=== PATIENT | male | born 1940 | race Caucasian/White ===

== ENCOUNTER 2017-08-24 11:24 | Day surgery (SDC) | payer OTHER, MEDICARE ==
[2017-08-18 15:41] LABS: BASOPHILS % (AUTO) 0.4 % (0-1); EOSINOPHILS # (AUTO) 0.3 X10'3 (0-0.9); EOSINOPHILS % (AUTO) 4.6 % (0-6); HEMOGLOBIN 14.3 g/dl (14.0-17.9); LYMPHOCYTES # (AUTO) 1.2 X10'3 (1.1-4.8); LYMPHOCYTES % (AUTO) 17.9 % (21-51); MEAN CORPUSCULAR HEMOGLOBIN 32.1 PG (27.0-31.0); MEAN CORPUSCULAR HGB CONC 33.9 % (33.0-36.5); MEAN CORPUSCULAR VOLUME 94.6 FL (78-98); MONOCYTES # (AUTO) 0.5 X10'3 (0-0.9); MONOCYTES % (AUTO) 7.5 % (2-12); NEUTROPHILS # (AUTO) 4.8 X10'3 (1.8-7.7); NEUTROPHILS % (AUTO) 69.6 % (42-75); PLATELET COUNT 172 X10'3 (140-440); RED BLOOD COUNT 4.44 X10'6 (4.70-6.10); RED CELL DISTRIBUTION WIDTH 13.3 % (11.5-14.5); WHITE BLOOD COUNT 6.9 X10'3 (4.5-11.0)
[2017-08-18 15:51] LABS: ALBUMIN 3.6 G/DL (3.4-5.0); ANION GAP 8 (8-16); BLOOD UREA NITROGEN 15 MG/DL (7-18); BUN/CREATININE RATIO 13.9 (5.4-32.0); CALCIUM 8.5 MG/DL (8.5-10.1); CHLORIDE 114 MMOL/L (99-107); CREATININE 1.08 MG/DL (0.60-1.10); GLUCOSE 103 MG/DL (70-104); INR 2.2 INR; PARTIAL THROMBOPLASTIN TIME 36 SECONDS (22-32); POTASSIUM 4.2 MMOL/L (3.5-5.1); PROTHROMBIN TIME 22.3 SECONDS (9.0-12.0); SODIUM 147 MMOL/L (135-145); TOTAL CARBON DIOXIDE 25.1 MMOL/L (24-32); eGFR 67 ML/MIN
[2017-08-24] VITALS (11 sets, daily range): BP systolic 102–152; BP diastolic 69–94
[~2017-08-24] VITALS: Ht 172.7 cm; Wt 114.4 kg
[2017-08-24] MEDS ORDERED: LORazepam 0.5 MG tablet PO PRN (11:50)
[2017-08-24] MEDS ORDERED: diphenhydrAMINE 25mg capsule PO PRN (11:50)
[2017-08-24] MEDS ORDERED: normal saline 1000ml 1,000 ML IV SCH ×2 (11:50→16:40)
[2017-08-24] MEDS ORDERED: ALLO100T PO (12:23)
[2017-08-24] MEDS ORDERED: DULO-31 PO (12:23)
[2017-08-24] MEDS ORDERED: LOSA25TA96 PO (12:23)
[2017-08-24] MEDS ORDERED: MULT-1085 PO (12:23)
[2017-08-24] MEDS ORDERED: ROSU40TA PO (12:23)
[2017-08-24] MEDS ORDERED: TOPI50TA24 PO (12:23)
[2017-08-24] MEDS ORDERED: FINA5TAB11 PO (12:23)
[2017-08-24] MEDS ORDERED: COU5T PO (12:23)
[2017-08-24] MEDS ORDERED: OMEG1CAP13 PO (12:23)
[2017-08-24] MEDS ORDERED: FLO0.4C PO (12:23)
[2017-08-24] MEDS ORDERED: METO50TA17 PO (12:23)
[2017-08-24] MEDS ORDERED: METH500T6 PO (12:23)
[2017-08-24 13:22] LABS: INR 0.9 INR; PROTHROMBIN TIME 9.8 SECONDS (9.0-12.0)
[2017-08-24] MEDS ORDERED: iohexol 350MG/ML 100ml bottle IV ONE (14:21)
[2017-08-24] MEDS ORDERED: LIDOcaine 1% w/EPI 1:100,000 30ml vial (MDV) ONE (14:21)
[2017-08-24] MEDS ORDERED: midazolam 2 mg/2 ml injection ONE (14:37)
[2017-08-24] MEDS ORDERED: fentaNYL/PF 50MCG/1 ML 2ML syringe ONE (14:37)
[2017-08-24] MEDS ORDERED: HYDROcodone/acetaminophen 5mg/325mg tablet PO PRN (16:40)
[2017-08-24] MEDS ORDERED: ondansetron/PF 4mg/2ml inj IV PRN (16:40)
[2017-08-24] MEDS ORDERED: HYDROcodone/acetaminophen 10/325mg tab PO PRN (16:45)
[2017-08-24] MEDS ORDERED: proCHLORperazine 10 MG/2 ml inj IV PRN (16:45)
[2017-08-24] MEDS ORDERED: nitroGLYCERIN 0.4mg SUBLingual tab SL PRN (16:45)
[2017-08-24] MEDS ORDERED: OXAZEpam 15mg capsule PO PRN (16:45)
== END 2017-08-24 20:10 | disposition home or self-care (01) ==
LOC: SSTAY O 11:24
PROVIDERS: ATTEND Internal Medicine Interventional Cardiology
DX: I25.118 Atherosclerotic heart disease of native coronary artery with other forms of angina pectoris (principal); E66.9 Obesity, unspecified; E78.5 Hyperlipidemia, unspecified; G47.33 Obstructive sleep apnea (adult) (pediatric); F32.9 Major depressive disorder, single episode, unspecified; F41.9 Anxiety disorder, unspecified; N40.0 Benign prostatic hyperplasia without lower urinary tract symptoms; I11.0 Hypertensive heart disease with heart failure; I50.9 Heart failure, unspecified; I48.2 Chronic atrial fibrillation; I34.0 Nonrheumatic mitral (valve) insufficiency; I27.20 Pulmonary hypertension, unspecified; Z79.01 Long term (current) use of anticoagulants; Z86.73 Personal history of transient ischemic attack (TIA), and cerebral infarction without residual deficits; Z87.891 Personal history of nicotine dependence; Z88.2 Allergy status to sulfonamides; Z68.38 Body mass index [BMI] 38.0-38.9, adult; Z79.899 Other long term (current) drug therapy
CPT/HCPCS: 36415; 80048; 85025; 85610; 85730; 93458; 99152; A6257; C1769; J1644; J2250; J3010; J3490; J7030; Q0163; Q9967; 99153; A4620